=== PATIENT | female | born 1950 | race Asian ===

== ENCOUNTER 2018-05-15 07:32 | Day surgery (SDC) | payer OTHER ==
[2018-05-15] MEDS: SOD CHLORIDE 0.9% 1,000 ML IV (08:51)
[2018-05-15] MEDS ORDERED: LIDOCAINE 1% (MPF) 5 ML VIAL (09:14)
[2018-05-15] MEDS ORDERED: MIDAZOLAM 1 MG/ML 2 ML INJ (09:14)
[2018-05-15] MEDS ORDERED: FENTAnyl 50 MCG/ML VIAL (09:14)
== END 2018-05-15 12:43 | disposition home or self-care (01) ==
LOC: SDS 07:32
DX: D72.818 Other decreased white blood cell count (principal)
CPT/HCPCS: 38221; 77012; 88305; 88311; 88313